=== PATIENT | male | born 1990 | race Caucasian/White ===

== ENCOUNTER 2022-02-08 23:58 | Emergency (ER) | payer SELFPAY ==
[~2022-02-08] VITALS: Ht 177.8 cm; Wt 82.0 kg
[2022-02-09] MEDS ORDERED: NALOXONE HCL 0.4 MG/ML 1ML VIAL IM ONE (00:45)
[2022-02-09] MEDS ORDERED: NALO4SPR BOTHNSTRLS (01:57)
[2022-02-09 03:26] VITALS: BP 121/76
== END 2022-02-09 03:27 | disposition home or self-care (01) ==
LOC: ER 02-09 00:06
DX: T40.601A Poisoning by unspecified narcotics, accidental (unintentional), initial encounter (principal); I49.9 Cardiac arrhythmia, unspecified; Y92.9 Unspecified place or not applicable
CPT/HCPCS: 93005; 96372; 99283; J2310; Z7610